=== PATIENT | female | born 1985 | race American Indian/Alaskan Native ===

== ENCOUNTER 2017-01-18 15:51 | Emergency (ER) | payer OTHER ==
[2017-01-18 22:04] LABS: Bilirubin,Urine NEG (Negative); Blood,Urine NEG (Negative); Ketones,Urine NEG (Negative); Leukocyte Esterase,Urine NEG (Negative); Mucus,Urine FEW /HPF; Nitrite,Urine NEG (Negative); Protein,Urine <15 mg/dL mg/dL (Negative); Urobilinogen,Urine < 2.0 mg/dL (<2.0)
[2017-01-18] MEDS ORDERED: REGLAN IV ONE (22:37)
[2017-01-18] MEDS ORDERED: MAGNESIUM SULFATE 2GM/50ML 2 GM/50 ML BAG IV ONE (22:37)
[2017-01-18] MEDS ORDERED: BENADRYL IV ONE (22:37)
[2017-01-18] MEDS ORDERED: NACL 0.9% 1000 ML 1,000 ML IV ONE (22:37)
[2017-01-18] MEDS ORDERED: TORADOL IV ONE (22:38)
--- NOTE | 2017-01-18 23:24 | Emergency Department Report ---
ED General Adult HPI - General Chief complaint: Headache Stated complaint: MIGRAINE/LOWER BACK PAIN Time Seen by Provider: 01/18/17 22:30 Source: patient Mode of arrival: Ambulatory Limitations: No Limitations - History of Present Illness Initial comments: Patient is a 31-year-old female who presents with headache that has been going on since this morning she states that her headaches may now 10 located in the left temporal area and radiates throughout her head as a sharp achy pain. This is typical for her migraines. Darkness makes it better light makes it worse. The symptoms were gradual in onset. Patient also states she has some mild back pain which is a 6 out of 10. Patient denies having any nausea or vomiting or any trauma to her head or back. Patient denies any fever or vision change. Severity scale (0 -10): 10 - Related Data Home Medications Medication Instructions Recorded Confirmed Last Taken Cyclobenzaprine [Flexeril] 10 mg PO TID PRN 12/03/15 12/03/15 Unknown Magnesium Oxide 420 mg PO QDAY 12/03/15 12/03/15 Unknown Pregabalin [Lyrica] 75 mg PO BID 12/03/15 12/03/15 Unknown Promethazine [Phenergan TAB] 25 mg PO Q6HR PRN 12/03/15 12/03/15 Unknown Ranitidine HCl [Zantac 150 MG TAB] 150 mg PO BID 12/03/15 12/03/15 Unknown SUMAtriptan SUCCINATE [Imitrex] 100 mg PO ONCE PRN 12/03/15 12/03/15 Unknown oxyCODONE /ACETAMINOPHEN [Percocet 1 tab PO ONCE PRN 12/03/15 12/03/15 Unknown 5/325] Previous Rx's Medication Instructions Recorded Last Taken Type HYDROcodone/APAP 5-325 [[place] 1 each PO Q6HR PRN #10 tablet 12/03/15 Unknown Rx 5/325] Levofloxacin [Levaquin TAB] 500 mg PO QDAY #7 tablet 12/03/15 Unknown Rx Allergies Allergy/AdvReac Type Severity Reaction Status Date / Time cyclobenzaprine HCl Allergy Unknown Verified 12/02/15 23:41 [From Flexeril] Penicillins Allergy Angioedema Verified 12/02/15 23:41 vancomycin Allergy Bleeding Verified 12/02/15 23:41 ibuprofen AdvReac Nausea Verified 12/02/15 23:41 ED Review of Systems ROS: Stated complaint: MIGRAINE/LOWER BACK PAIN Other details as noted in HPI Constitutional: denies: chills, fever Eyes: denies: eye pain, eye discharge, vision change ENT: denies: ear pain, throat pain Respiratory: denies: cough, shortness of breath, wheezing Cardiovascular: denies: chest pain, palpitations Endocrine: no symptoms reported Gastrointestinal: denies: abdominal pain, nausea, diarrhea Genitourinary: denies: urgency, dysuria, discharge Musculoskeletal: back pain. denies: joint swelling, arthralgia Skin: denies: rash, lesions Neurological: headache. denies: weakness, paresthesias Psychiatric: denies: anxiety, depression Hematological/Lymphatic: denies: easy bleeding, easy bruising ED Past Medical Hx - Past Medical History Previous Medical History?: Yes Hx GERD: Yes Hx Arthritis: Yes (Osteroarthritis,spondylosis) Hx Headaches / Migraines: Yes Hx Seizures: Yes (syncope) Additional medical history: IBS,ICS, pancreatitis,migrains,fibromyalgia, fibrocystic breast,Cubital tunnel syndrome,fibroids,Lumbugo, - Surgical History Past Surgical History?: Yes Additional Surgical History: RK. Abdominal - Social History Smoking Status: Unknown if ever smoked Substance Use Type: None - Medications Home Medications: Home Medications Medication Instructions Recorded Confirmed Last Taken Type Cyclobenzaprine [Flexeril] 10 mg PO TID PRN 12/03/15 12/03/15 Unknown History HYDROcodone/APAP 5-325 [[place] 1 each PO Q6HR PRN #10 tablet 12/03/15 Unknown Rx 5/325] Levofloxacin [Levaquin TAB] 500 mg PO QDAY #7 tablet 12/03/15 Unknown Rx Magnesium Oxide 420 mg PO QDAY 12/03/15 12/03/15 Unknown History Pregabalin [Lyrica] 75 mg PO BID 12/03/15 12/03/15 Unknown History Promethazine [Phenergan TAB] 25 mg PO Q6HR PRN 12/03/15 12/03/15 Unknown History Ranitidine HCl [Zantac 150 MG TAB] 150 mg PO BID 12/03/15 12/03/15 Unknown History SUMAtriptan SUCCINATE [Imitrex] 100 mg PO ONCE PRN 12/03/15 12/03/15 Unknown History oxyCODONE /ACETAMINOPHEN [Percocet 1 tab PO ONCE PRN 12/03/15 12/03/15 Unknown History 5/325] ED Physical Exam - General Limitations: No Limitations General appearance: alert, in no apparent distress - Head Head exam: Present: atraumatic, normocephalic - Eye Eye exam: Present: normal appearance - ENT ENT exam: Present: mucous membranes moist - Neck Neck exam: Present: normal inspection - Respiratory Respiratory exam: Present: normal lung sounds bilaterally. Absent: respiratory distress - Cardiovascular Cardiovascular Exam: Present: regular rate, normal rhythm. Absent: systolic murmur, diastolic murmur, rubs, gallop - GI/Abdominal GI/Abdominal exam: Present: soft, normal bowel sounds - Extremities Exam Extremities exam: Present: normal inspection - Back Exam Back exam: Present: paraspinal tenderness - Neurological Exam Neurological exam: Present: alert, oriented X3 - Psychiatric Psychiatric exam: Present: normal affect, normal mood - Skin Skin exam: Present: warm, dry, intact, normal color. Absent: rash ED Course Vital Signs 01/18/17 01/18/17 01/18/17 16:00 20:37 20:40 Temperature 99.9 F H Pulse Rate 90 Respiratory 22 Rate Blood Pressure 138/88 120/84 120/84 O2 Sat by Pulse 100 100 Oximetry 01/18/17 01/18/17 01/18/17 20:47 21:00 21:20 Temperature Pulse Rate Respiratory 17 Rate Blood Pressure 111/61 107/79 O2 Sat by Pulse 99 100 100 Oximetry 01/18/17 01/18/17 01/18/17 21:52 22:00 22:20 Temperature Pulse Rate Respiratory Rate Blood Pressure 107/79 115/67 107/79 O2 Sat by Pulse 100 98 99 Oximetry 01/18/17 01/18/17 01/18/17 22:40 23:00 23:03 Temperature Pulse Rate Respiratory 18 Rate Blood Pressure 125/78 115/77 O2 Sat by Pulse 99 100 Oximetry 01/18/17 01/18/17 01/19/17 23:20 23:40 00:00 Temperature Pulse Rate Respiratory Rate Blood Pressure 112/68 111/69 110/58 O2 Sat by Pulse 99 100 99 Oximetry - Reevaluation(s) Reevaluation #1: 01/19/17 00:36 Patient states that her migraine headache has subsided. Patient still states that she has some back pain I will give patient one oral dose of Independence. ED Medical Decision Making - Lab Data Lab Results 01/18/17 Range/Units 21:30 Urine Color Yellow (Yellow) Urine Turbidity Clear (Clear) Urine pH 6.0 (5.0-7.0) Ur Specific [place] 1.026 (1.003-1.030) Urine Protein <15 mg/dl (Negative) mg/dL Urine Glucose (UA) Neg (Negative) mg/dL Urine Ketones Neg (Negative) mg/dL Urine Blood Neg (Negative) Urine Nitrite Neg (Negative) Urine Bilirubin Neg (Negative) Urine Urobilinogen < 2.0 (<2.0) mg/dL Ur Leukocyte Esterase Neg (Negative) Urine WBC (Auto) 1.0 (0.0-6.0) /HPF Urine RBC (Auto) 2.0 (0.0-6.0) /HPF U Epithel Cells (Auto) 1.0 (0-13.0) /HPF Urine Mucus Few /HPF Urine HCG, Qual Negative (Negative) - Medical Decision Making Chief medical diagnosis: Migraine headache Differential diagnosis: Tension headache, chronic back pain exacerbation, Lumbar sacral strain Due to patient stating that this is her typical migraine all today urine and a urine to evaluate patient's . Due the patient's migraine headache I will. IV Reglan and IV Benadryl IV fluids and IV Toradol. Patient does not need CT scan of head due to patient's age and clinical suspicion is low for any intracranial pathology. Patient has no neurologic deficits. Critical care attestation.: If time is entered above; I have spent that time in minutes in the direct care of this critically ill patient, excluding procedure time. ED Disposition Clinical Impression: Migraine headache Qualifiers: Migraine type: without aura Status migrainosus presence: without status migrainosus Intractability: not intractable Qualified Code(s): G43.009 - Migraine without aura, not intractable, without status migrainosus Pain in lower back Qualifiers: Chronicity: acute Back pain laterality: unspecified Sciatica presence: without sciatica Qualified Code(s): M54.5 - Low back pain Disposition: TO HOME OR SELFCARE Is pt being admited?: No Does the pt Need Aspirin: No Condition: Fair Instructions: Migraine Headache (ED) Referrals: PRIMARY CARE, [Primary Care Provider] - 3-5 Days Time of Disposition: 00:40
[2017-01-19] MEDS ORDERED: NORCO 5/325 PO ONE (00:33)
[2017-01-19 01:04] VITALS: BP 103/67
== END 2017-01-19 01:02 | disposition home or self-care (01) ==
LOC: ED 15:51
DX: G43.909 Migraine, unspecified, not intractable, without status migrainosus (principal); M54.5 Low back pain; K21.9 Gastro-esophageal reflux disease without esophagitis; M19.90 Unspecified osteoarthritis, unspecified site; Z88.6 Allergy status to analgesic agent; Z88.1 Allergy status to other antibiotic agents; Z88.0 Allergy status to penicillin; Z88.8 Allergy status to other drugs, medicaments and biological substances
CPT/HCPCS: 81001; 81025; 96365; 96375; 99283; J1200; J1885; J2765; J3475; J7030